=== PATIENT | female | born 1995 | race Hispanic/Latino ===

== ENCOUNTER → 2019-08-07 | Outpatient (REF) | payer OTHER ==
[~2019-08-07] MED LIST: COLA100C5 PO; DIBU1OIN TOP; MOTR200T44 PO; STUACAP PO; TYLE325T5 PO
[2019-08-07 21:29] LABS: CHLAMYDIA DNA AMPLIFICATION NEGATIVE (NEGATIVE); GC DNA AMPLIFICATION NEGATIVE (NEGATIVE)
== END ==
LOC: M SFHCLUC 10:54
PROVIDERS: ATTEND Nurse Practitioner Family
DX: R11.2 Nausea with vomiting, unspecified (principal)

== ENCOUNTER 2020-10-19 10:35 | Emergency (ER) | payer OTHER ==
[~2020-10-19] VITALS: Ht 157.5 cm; Wt 79.5 kg
[2020-10-19] MEDS ORDERED: PREN1CHW PO (10:40)
[2020-10-19 11:40] LABS: BASO % 0.4 % (0.0-1.0); EOS # 0.1 10^3/uL (0.0-0.5); EOS % 1.5 % (0.0-3.0); HEMATOCRIT 38.8 % (36.0-47.0); LYMPH # 1.6 10^3/uL (1.5-5.0); LYMPH % 22.2 % (24.0-44.0); MEAN CORPUSCULAR HEMOGLOBIN 29.1 pg (27.0-33.0); MEAN CORPUSCULAR HGB CONC 33.5 g/dl (32.0-36.5); MEAN CORPUSCULAR VOLUME 86.8 fl (80.0-96.0); MONO # 0.4 10^3/uL (0.0-0.8); MONO % 5.1 % (0.0-5.0); NEUTROPHILS # 5.1 10^3/uL (1.5-8.5); NEUTROPHILS % 70.5 % (36.0-66.0); PLATELET COUNT, AUTOMATED 217 10^3/uL (150-450); RED BLOOD COUNT 4.47 10^6/uL (4.00-5.40); WHITE BLOOD COUNT 7.2 10^3/uL (4.0-10.0)
[2020-10-19 12:18] LABS: BLOOD UREA NITROGEN 8 MG/DL (7-18); CALCIUM LEVEL 8.9 MG/DL (8.5-10.1); CARBON DIOXIDE LEVEL 27 MEQ/L (21-32); CHLORIDE LEVEL 105 MEQ/L (98-107); CREATININE FOR GFR 0.78 MG/DL (0.55-1.30); GLOMERULAR FILTRATION RATE > 60.0 (>60); GLUCOSE, FASTING 94 MG/DL (70-100); HCG, SERUM QUANTITATIVE 65856 MIU/ML; POTASSIUM SERUM 3.7 MEQ/L (3.5-5.1); SODIUM LEVEL 138 MEQ/L (136-145)
--- NOTE | 2020-10-19 12:32 | REP ---
INDICATION: vaginal bleeding 7wks . COMPARISON: No pertinent priors TECHNIQUE: Transvesical imaging only FINDINGS: Within the uterus there is an anechoic structure with increased echoes surrounding it consistent with a decidual reaction. Within the gestational sac there is echogenic material consistent with a pole the mean crown-rump length measurement of which is consistent with a 7 week 3 day gestational age. Based on that the estimated date of delivery is 06/04/2021. Doppler interrogation of the heart is a heart rate of 169 beats per minute. No chorionic or subchorionic abnormalities are noted. No gross abnormality is seen in the maternal adnexa spaces. IMPRESSION: Early OB ultrasound as described above. <Electronically signed by Kendell Elam > 10/19/20 2400
[2020-10-19] MEDS ORDERED: KEFL500C17 PO (13:55)
[2020-10-19 14:19] VITALS: BP 102/58
== END 2020-10-19 14:23 | disposition home or self-care (01) ==
LOC: M ED 10:35
DX: O20.9 Hemorrhage in early pregnancy, unspecified (principal); O23.41 Unspecified infection of urinary tract in pregnancy, first trimester; Z3A.01 Less than 8 weeks gestation of pregnancy

== ENCOUNTER → 2020-10-22 | Outpatient (CLI) | payer OTHER ==
[~2020-10-22] MED LIST changes: +KEFL500C17 PO; +PREN1CHW PO
== END ==
LOC: M LAB 10:20
PROVIDERS: ATTEND Nurse Practitioner Family
DX: O26.859 Spotting complicating pregnancy, unspecified trimester (principal); Z3A.00 Weeks of gestation of pregnancy not specified

== ENCOUNTER 2021-03-07 18:22 | Emergency (ER) | payer OTHER ==
[~2021-03-07] VITALS: Ht 157.5 cm; Wt 84.7 kg
[2021-03-07] MEDS ORDERED: NITR-67 PO (18:35)
[2021-03-07] MEDS ORDERED: ACETAMINOPHEN 325 MG TAB PO ONE (19:35)
[2021-03-07 19:59] LABS: BASO % 0.2 % (0.0-1.0); EOS # 0.1 10^3/uL (0.0-0.5); EOS % 1.4 % (0.0-3.0); HEMATOCRIT 32.3 % (36.0-47.0); HEMOGLOBIN 10.7 g/dl (12.0-15.5); LYMPH # 2.1 10^3/uL (1.5-5.0); LYMPH % 24.5 % (24.0-44.0); MEAN CORPUSCULAR HEMOGLOBIN 29.9 pg (27.0-33.0); MEAN CORPUSCULAR HGB CONC 33.1 g/dl (32.0-36.5); MEAN CORPUSCULAR VOLUME 90.2 fl (80.0-96.0); MONO # 0.7 10^3/uL (0.0-0.8); MONO % 8.6 % (2.0-8.0); NEUTROPHILS # 5.5 10^3/uL (1.5-8.5); NEUTROPHILS % 64.4 % (36.0-66.0); PLATELET COUNT, AUTOMATED 180 10^3/uL (150-450); RED BLOOD COUNT 3.58 10^6/uL (4.00-5.40); WHITE BLOOD COUNT 8.5 10^3/uL (4.0-10.0)
[2021-03-07 20:28] LABS: ALBUMIN 2.6 GM/DL (3.2-5.2); ALT/SGPT 16 U/L (12-78); BILIRUBIN,TOTAL 0.3 MG/DL (0.2-1.0); BLOOD UREA NITROGEN 6 MG/DL (7-18); CALCIUM LEVEL 8.6 MG/DL (8.5-10.1); CARBON DIOXIDE LEVEL 24 MEQ/L (21-32); CHLORIDE LEVEL 108 MEQ/L (98-107); CREATININE FOR GFR 0.55 MG/DL (0.55-1.30); GLOMERULAR FILTRATION RATE > 60.0 (>60); GLUCOSE, FASTING 95 MG/DL (70-100); POTASSIUM SERUM 3.8 MEQ/L (3.5-5.1); SODIUM LEVEL 140 MEQ/L (136-145); TOTAL PROTEIN 6.1 GM/DL (6.4-8.2)
[2021-03-07 20:54] VITALS: BP 130/61
== END 2021-03-07 20:56 | disposition home or self-care (01) ==
LOC: M ED 18:22
DX: O26.893 Other specified pregnancy related conditions, third trimester (principal); M54.5 Low back pain; Z3A.28 28 weeks gestation of pregnancy

== ENCOUNTER 2021-05-31 06:51 | Inpatient (IN) | payer OTHER ==
[~2021-05-31] VITALS: Ht 157.5 cm; Wt 88.2 kg
[2021-05-31] VITALS (24 sets, daily range): BP systolic 102–140; BP diastolic 53–91
[~2021-05-31 06:51] MED LIST changes: +NITR-67 PO
[2021-05-31] MEDS ORDERED: CARBOPROST TROMETHAMINE 250 MCG/ML AMP IM PRN (09:25)
[2021-05-31] MEDS ORDERED: LIDOCAINE 1% MDV 20ML VIAL INFIL PRN (09:25)
[2021-05-31] MEDS ORDERED: METHYLERGONOVINE MALEATE 0.2 MG/ML VIAL (J2210) IM PRN (09:25)
[2021-05-31] MEDS ORDERED: OXYTOCIN DRIP 30 UNITS in IV 1 EA IV PRN ×4 (09:25)
[2021-05-31] MEDS ORDERED: TRANEXAMIC ACID INJection 1,000 MG in NS 100 ML IV PRN (09:25)
[2021-05-31 09:59] LABS: HEMATOCRIT 35.2 % (36.0-47.0); HEMOGLOBIN 11.9 g/dl (12.0-15.5); MEAN CORPUSCULAR HEMOGLOBIN 30.4 pg (27.0-33.0); MEAN CORPUSCULAR HGB CONC 33.8 g/dl (32.0-36.5); PLATELET COUNT, AUTOMATED 160 10^3/uL (150-450); RED BLOOD COUNT 3.91 10^6/uL (4.00-5.40); WHITE BLOOD COUNT 8.7 10^3/uL (4.0-10.0)
--- NOTE | 2021-05-31 10:03 | HPEPDOC ---
Obstetrical History & Physical General Date of Admission May 31, 2021 at 09:13 History of Present Illness Patient is a 26yo at 39w1d by LMP c/w 1st TM US, presents for worsening contraction pain that began at 0200 this AM. States they are occurring every 2-3 min and becoming more painful. Denies LOF, VB or discharge. +GFM. Chief Complaint: Contractions, term Information Provided By: Patient Care Care: Good Care Dating Final EDC: Jun 06, 2021 Final EDC by: LMP, 1st trimester (US) Antepartum Course Diagnos(e)s Obesity(BMI 31) Elevated 1hr, nml 3hr GTT Past Medical History Past Obstetrical History #1: Past Obstetrical History: Multigravida Type of Delivery: Spontaneous Vaginal Del. Sex of : Male Complications: No Past Obstetrical History #2: Type of Delivery: Spontaneous Vaginal Del. 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 History: No pertinent history Past Medical History Medical History obesity Surgical History: Denies/None Family History Significant Family History: No pertinent family hx Social History Marital Status: Family situation: Spouse/partner home Psychosocial History: No pertinent psych hx * Smoker: non-smoker Abuse Violence Screening Have you been hit/kicked/slapp: No Have you been sexually assault: No Imunizations Tdap status: current Influenza Status: current Allergies Coded Allergies: No Known Allergies (Unverified , 04/24/16) Medications Scheduled Comb No.42/Folic Acid (Prena1 Chew Tablet) 1.4 Mg Tab.ch.bph, 1 TAB PO DAILY Physical Examination Physical Examination GENERAL: Alert and oriented times three. BREAST: . ABDOMEN: Gravid and non-tender to touch. FETUS: Is vertex (VTX) by sterile vaginal examination (SVE). SVE 4/80/-1 on initial exam, repeat 5/100/-1 HEART RATE: Regular rate and rhythm. LUNGS: Normal work of breathing EXTREMITIES: No edema. No clonus. Deep tendon reflexes (DTRs) + . Vital Signs/I&O Vital Signs Date Time Temp Pulse Resp B/P (MAP) Pulse Ox O2 Delivery O2 Flow Rate FiO2 05/31/21 07:12 98.2 78 18 113/64 (80) Laboratory Data 24H LABS Laboratory Tests 2 05/31/21 09:31: Serology Scanned Report Hepatitis B Testing 05/31/21 09:46: CBC/BMP Laboratory Tests 05/31/21 09:46 Pertinent Laboratoy Data Blood Type: B+ RBC Antibody Screen: Negative HIV: Negative Hepatitis B: Negative Hepatitis C: Negative Rapid Plasma Reagin: Nonreactive Rubella: Immune Varicella: Immune Chlamydia/Gonorrhea: Negative Group B Streptococcus: Negative Vaginal Examination Dilation: 4 cm Effacement: 70% Station: -1 Cervical Consistency: Soft Cervical Position: Middle Presentation: Cephalic presentation Assessment Heart Rate (FHR): 140 Variability: Moderate Accelerations: Positive Decelerations: None Tocometer Contractions: Yes Frequency: regular, every 1-5 min. Duration: greater than 60 seconds Strength: palpated as moderate Multi-drug resistant Organism: No history of MDRO Assessment/Plan Plan Admit and orient. Pressurizer and consent. Diet: clears now. NPO in active labor Group B Streptococcus (GBS) negative. Labs and intravenous (IV) per unit protocol. Counseled on Pitocin and augmentation of labor if indicated Lactated Ringers (LR):bolus for epidural, then maintenance Anticipate [normal spontaneous delivery . C-S as appropriate. Labor and Delivery Counseling Counseled on risks/benefits of balloon insertion (ie: infection, inadvertent AROM), and reviewed common medication utilized during induction (cytotec, pitocin). Reviewed reasons for possible operative vs. delivery as well as risks/benefits associated with these procedures to include injury, infection, and possible need for blood transfusion in the event of signficant hemorrhage. Patient and both present during counseling and agree to proceed. All questions answered. ALAINA THOMAS M.D. May 31, 2021 10:03
[2021-05-31] MEDS ORDERED: FENTANYL 2MCG/ML ROPIVACAINE 0.2% IN 0.9% NACL 100ML IVBAG As Ordered ONE (10:08)
[2021-05-31] MEDS ORDERED: LACTATED RINGER'S 1000 ML IV PRN (10:15)
[2021-05-31] MEDS ORDERED: ePHEDrine SULFATE 25 MG/5 ML(5MG/ML) SYRINGE IV PRN (10:15)
[2021-05-31] MEDS ORDERED: EPIDURAL COMMENT XX SCH (10:15)
[2021-05-31] MEDS ORDERED: FENTANYL/ROPIVACAINE/NACL BAG 100 ML EPIDURAL SCH (10:15)
[2021-05-31] MEDS ORDERED: diphenhydrAMINE 50MG/ML VIAL (J1200) IV PRN (10:15)
[2021-05-31] MEDS ORDERED: NALOXONE INJ 0.4MG/1ML VIAL (J2310 PER 1MG) IV PRN (10:15)
[2021-05-31] MEDS ORDERED: ONDANSETRON 4MG/2ML VIAL IV PRN (10:15)
[2021-05-31] MEDS ORDERED: EPIDURAL/PCA KEYS XX PRN (10:15)
[2021-05-31] MEDS ORDERED: REFRIGERATOR IV KEYS XX PRN (10:15)
--- NOTE | 2021-05-31 14:18 | IPNPDOC ---
Obstetrical Progress Note Date of Service May 31, 2021 Subjective 26yo at 39wks in active labor. Comfortable with epidural. Denies LOF, VB or discharge. +GFM. Objective Vital Signs Date Time Temp Pulse Resp B/P (MAP) Pulse Ox O2 Delivery O2 Flow Rate FiO2 05/31/21 12:26 64 18 113/59 (77) 05/31/21 12:11 73 114/56 (75) 05/31/21 11:54 76 18 112/70 (84) 05/31/21 11:40 70 115/64 (81) 05/31/21 11:24 59 107/58 (74) 05/31/21 11:09 86 112/61 (78) 05/31/21 10:51 73 119/58 (78) 05/31/21 10:47 70 115/57 (76) 05/31/21 10:42 68 102/57 (72) 05/31/21 10:39 76 18 113/53 (73) 05/31/21 10:30 83 18 135/67 (89) 05/31/21 10:26 75 18 05/31/21 10:25 79 20 132/78 (96) 05/31/21 10:21 73 20 129/67 (87) 05/31/21 10:17 81 18 140/91 (107) 05/31/21 10:05 79 18 130/67 (88) 05/31/21 07:12 98.2 78 18 113/64 (80) Laboratory Tests 05/31/21 09:31: Serology Scanned Report Hepatitis B Testing 05/31/21 09:46: White Blood Count 8.7, Red Blood Count 3.91L, Hemoglobin 11.9L, Hematocrit 35.2L, Mean Corpuscular Volume 90.0, Mean Corpuscular Hemoglobin 30.4, Mean Corpuscular Hemoglobin Concent 33.8, Red Cell Distribution Width 13.8, Platelet Count 160, Nucleated Red Blood Cells % (auto) 0.0, Syphilis Serology NONREACTIVE Current Medications Medications (Trade) Dose Ordered Sig/Dominique Route PRN Reason Start Time Stop Time Status Last Admin Dose Admin Ropivacaine/ Fentanyl/NS 100 ml @ 10 mls/hr Q10H EPIDURAL 05/31/21 10:15 06/03/21 10:14 05/31/21 10:44 10 MLS/HR Vital Signs Date Time Temp Pulse Resp B/P (MAP) Pulse Ox O2 Delivery O2 Flow Rate FiO2 05/31/21 12:26 64 18 113/59 (77) 05/31/21 07:12 98.2 Assessment Heart Rate (FHR): 130 Variability: Moderate Accelerations: Positive Decelerations: None Heart Rate Tracing: Category I Tocometer Contractions: Yes Frequency: regular Duration: greater than 60 seconds Strength: palpated as strong Sterile Vaginal Examination Dilation: 7 cm (AROM, clear fluid) Effacement (%): 100% Station: -1 Cervical Consistency: Soft Postion/Presentation: Cephalic presentation Assessment and Plan Status: Reassuring Anticipate: Vaginal Delivery Additional Comments Pt comfortable with epidural. AROM performed with moderate amount of clear fluid noted. FHT Cat 1. Anticipate vaginal delivery. ALAINA THOMAS M.D. May 31, 2021 14:18
[2021-05-31] MEDS ORDERED: ACETAMINOPHEN TAB 650MG DOSE (2X325MG) PO PRN (16:15)
[2021-05-31] MEDS ORDERED: IBUPROFEN 600MG TAB PO PRN (16:15)
[2021-05-31] MEDS ORDERED: MEASLES,MUMPS,RUBELLA VACCINE INJ (MMR-II) (90707) SC SCH (16:15)
--- NOTE | 2021-05-31 16:28 | DNPDOC ---
[facility] Delivery Note Delivery Note DATE OF DELIVERY: 31 May 2021 PREDELIVERY DIAGNOSIS: 39w0d weeks gestation Spontaneous labor Second degree perineal laceration POST DELIVERY DIAGNOSIS: Delivered. PROCEDURE: Spontaneous vaginal delivery. 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 ESTIMATED BLOOD LOSS: 300 mL. FINDINGS: male infant, Score 9/9 DELIVERY SUMMARY: Patient is a 26yo at 39wks gestation admitted in labor at term. Patient progressed to C/C/+2 and was allowed to push. With good maternal pushing effort, delivered head over intact perineum and restituted to LILO. Remainder of infant quickly delivered and was placed skin to skin on mother's chest. Infant spontaneously crying and moving all extremities. Delayed cord clamping performed [id number]. Placenta delivered intact without di fficulty. Small second degree perineal laceration noted and repaired in usual fashion. Good hemostasis noted. EBL 300cc. Mom and baby both stable immediately . ALAINA THOMAS M.D. May 31, 2021 16:27
[2021-05-31] MEDS: DIBUCAINE 1% OINTMENT 30GM TOP PRN (20:08)
[2021-05-31] MEDS: DOCUSATE SODIUM 100MG CAPSULE PO PRN (20:08)
[2021-05-31] MEDS: IBUPROFEN 800 MG TAB PO PRN (23:50)
[2021-06-01 05:39] VITALS: BP 107/51
--- NOTE | 2021-06-01 07:04 | IPNPDOC ---
Progress Note Date of Service: Jun 01, 2021 Day#: 1 Progress Note SUBJECT: Pt is a 26-year-old 3 now Para 3003 PPD #1status post uncomplicated spontaneous vaginal delivery at term. Delivered male at [id number]. She has been ambulating, voiding spontaneously without issue and tolerating regular diet. Breast feeding without issue. Reports lochia is minimal. Patient is ambulating well. OBJECTIVE: Vital Signs Date Time Temp Pulse Resp B/P (MAP) Pulse Ox O2 Delivery O2 Flow Rate FiO2 06/01/21 05:39 97.5 72 14 107/51 (69) 05/31/21 18:00 97.7 74 14 108/55 (72) 100 05/31/21 16:54 70 18 108/59 (75) 05/31/21 15:57 73 18 120/55 (76) 05/31/21 14:57 60 18 117/63 (81) 05/31/21 14:27 70 118/60 (79) 05/31/21 13:57 63 113/65 (81) 05/31/21 13:28 63 115/58 (77) 05/31/21 12:57 72 115/61 (79) 05/31/21 12:26 64 18 113/59 (77) 05/31/21 12:11 73 114/56 (75) 05/31/21 11:54 76 18 112/70 (84) 05/31/21 11:40 70 115/64 (81) 05/31/21 11:24 59 107/58 (74) 05/31/21 11:09 86 112/61 (78) 05/31/21 10:51 73 119/58 (78) 05/31/21 10:47 70 115/57 (76) 05/31/21 10:42 68 102/57 (72) 05/31/21 10:39 76 18 113/53 (73) 05/31/21 10:30 83 18 135/67 (89) 05/31/21 10:26 75 18 05/31/21 10:25 79 20 132/78 (96) 05/31/21 10:21 73 20 129/67 (87) 05/31/21 10:17 81 18 140/91 (107) 05/31/21 10:05 79 18 130/67 (88) 05/31/21 07:12 98.2 78 18 113/64 (80) Intake & Output 06/01/21 05:59 Intake Total 563 ml Output Total 2000 ml Balance -1437 ml Current Medications Medications (Trade) Dose Ordered Sig/Dominique Route PRN Reason Start Time Stop Time Status Last Admin Dose Admin Dibucaine (Dibucaine 1%) Apply to perineum Q4H PRN TOP pain 05/31/21 16:15 05/31/21 20:08 1 DOSE Docusate Sodium (Colace) 100 mg QHSP PRN PO CONSTIPATION 05/31/21 16:15 05/31/21 20:08 100 MG Ibuprofen (Advil) 800 mg Q8HP PRN PO PAIN LEVEL 6-10 05/31/21 16:15 05/31/21 23:50 800 MG Ropivacaine/ Fentanyl/NS 100 ml @ 10 mls/hr Q10H EPIDURAL 05/31/21 10:15 06/03/21 10:14 05/31/21 10:44 10 MLS/HR VITAL SIGNS: Within normal limits, afebrile. Alert and oriented times three. Breath sounds clear to auscultation. Heart rate: Regular rate and rhythm, no murmurs, rubs or gallops. Abdomen: Fundus firm at U-2. Soft, NTTP. ASSESSMENT:Pt is a 26-year-old 3 now Para 3003 status post uncomplicated spontaneous vaginal delivery after presenting in active labor at term, doing well on day 1. Vitals within normal limits, afebrile, hemodynamically stable with no evidence of infection. PLAN: 1. Plan for discharge home tomorrow AM. 2. Tylenol and Motrin for pain. 3. Encourage breast feeding and ambulation. 4. planning vasectomy for contraception 5. Routine PP visit in 6 weeks in clinic. VS, I&O, 24H, Fishbone Vital Signs/I&O Vital Signs Date Time Temp Pulse Resp B/P (MAP) Pulse Ox O2 Delivery O2 Flow Rate FiO2 06/01/21 05:39 97.5 72 14 107/51 (69) 05/31/21 18:00 100 I&O- Last 24 Hours up to 6 AM 06/01/21 05:59 Intake Total 563 ml Output Total 2000 ml Balance -1437 ml Laboratory Data 24H LABS Laboratory Tests 2 05/31/21 09:31: Serology Scanned Report Hepatitis B Testing 05/31/21 09:46: Nucleated Red Blood Cells % (auto) 0.0, Syphilis Serology NONREACTIVE CBC/BMP Laboratory Tests 05/31/21 09:46 ALAINA TOHMAS M.D. Jun 01, 2021 07:04
[2021-06-01] MEDS: PRENATAL VITAMINS CHEWABLE TABLET PO SCH (08:32)
[2021-06-01] MEDS: ACETAMINOPHEN 500 MG TAB PO PRN ×2 (08:33→19:58)
[2021-06-01 18:00] VITALS: BP 118/68
[2021-06-01] MEDS: DOCUSATE SODIUM 100MG CAPSULE PO PRN (19:57)
[2021-06-01] MEDS: DIBUCAINE 1% OINTMENT 30GM TOP PRN (20:15)
[2021-06-01] MEDS: IBUPROFEN 800 MG TAB PO PRN (23:10)
[2021-06-02 05:44] VITALS: BP 116/55
[2021-06-02] MEDS ORDERED: ACET-683 PO (07:58)
[2021-06-02] MEDS ORDERED: DIBU28OI2 TOP (07:58)
[2021-06-02] MEDS ORDERED: IBUP80TA PO (07:58)
--- NOTE | 2021-06-02 08:27 | DS.PDOC ---
Discharge Summary General Date of Admission May 31, 2021 at 09:13 Date of Discharge June 02, 2021 Discharge Summary HOSPITAL COURSE: Ms. Slater is a 26 yo G3 now P3 who underwent an uncomplicated on 31May2021 after being admitted for labor. Her course was unremarkable. On her day of discharge she met all appropriate discharge criteria. She was ambulating, voiding, tolerating a regular diet, and had minimal lochia. DISCHARGE MEDICATIONS: Please see below. ALLERGIES: Please see below. PHYSICAL EXAMINATION ON DISCHARGE: VITAL SIGNS: Please see below. GENERAL: AAOX3, NAD ABDOMINAL EXAMINATION: Fundus firm at U-2. No fundal tenderness EXTREMITIES: No edema PSYCHIATRIC EXAMINATION: Affect appropriate LABORATORY DATA: Please see below. ACTIVITY: Pelvic rest for 6 weeks DIET: Regular DISCHARGE PLAN: Discharge home DISPOSITION: Discharge home on 02Jun2021 DISCHARGE INSTRUCTIONS: 1. Nothing in the vagina for 6 weeks ITEMS TO FOLLOWUP ON ON OUTPATIENT: 1. Call to schedule a visit for 6 weeks post delivery DISCHARGE CONDITION: Stable. TIME SPENT ON DISCHARGE: Greater than 20 minutes. Sarah Lopez DO Vital Signs/I&Os Vital Signs Date Time Temp Pulse Resp B/P (MAP) Pulse Ox O2 Delivery O2 Flow Rate FiO2 06/02/21 05:44 96.8 60 14 116/55 (75) 06/01/21 18:00 98 Room Air Discharge Medications Scheduled Comb No.42/Folic Acid (Prena1 Chew Tablet) 1.4 Mg Tab.ch.bph, 1 TAB PO DAILY, (Reported) Scheduled PRN Acetaminophen (Acetaminophen) 500 Mg Tablet, 1,000 MG PO Q6HP PRN for PAIN LEVEL 6-10 Dibucaine (Dibucaine) 28 Gm Oint...g., 0 DOSE TOP Q4H PRN for pain Ibuprofen (Ibuprofen) 800 Mg Tablet, 800 MG PO Q8HP PRN for PAIN LEVEL 6-10 Allergies Coded Allergies: No Known Allergies (Unverified , 04/24/16) SARAH LOPEZ DO Jun 02, 2021 08:27
[2021-06-02] MEDS: PRENATAL VITAMINS CHEWABLE TABLET PO SCH (09:07)
[2021-06-02] MEDS: ACETAMINOPHEN 500 MG TAB PO PRN (09:17)
== END 2021-06-02 11:00 | disposition home or self-care (01) | DRG 807 ==
LOC: M LDO 06:51 → M LDI 09:13 → M OBS 18:34
PROVIDERS: ADMIT Obstetrics & Gynecology; ATTEND Obstetrics & Gynecology
PROC: 10E0XZZ Delivery of Products of Conception, External Approach (ICD-10-PCS; principal; 2021-05-31)
PROC: 0KQM0ZZ Repair Perineum Muscle, Open Approach (ICD-10-PCS; 2021-05-31)
PROC: 10907ZC Drainage of Amniotic Fluid, Therapeutic from Products of Conception, Via Natural or Artificial Opening (ICD-10-PCS; 2021-05-31)
DX: O99.214 Obesity complicating childbirth (principal); Z37.0 Single live birth; Z3A.39 39 weeks gestation of pregnancy; O70.1 Second degree perineal laceration during delivery; E66.9 Obesity, unspecified

== ENCOUNTER → 2022-03-05 | Outpatient (CLI) | payer OTHER ==
[~2022-03-05] MED LIST changes: +ACET-683 PO; +DIBU28OI2 TOP; +GASTROGRAFIN SOLUTION 30ML (Q9963) As Ordered ONE; +IBUP80TA PO; +ISOVUE-370 76% 100ML VIAL As Ordered ONE
== END ==
LOC: M RAD 15:40
PROVIDERS: ATTEND Surgery
DX: R10.13 Epigastric pain (principal); K59.00 Constipation, unspecified
CPT/HCPCS: 74178; Q9963; Q9967

== ENCOUNTER → 2022-05-12 | Outpatient (CLI) | payer BC, OTHER, SELFPAY ==
[~2022-05-12] MED LIST changes: -GASTROGRAFIN SOLUTION 30ML (Q9963) As Ordered ONE; -ISOVUE-370 76% 100ML VIAL As Ordered ONE
== END ==
LOC: M LABSMTC 11:30
PROVIDERS: ATTEND Anesthesiology
DX: Z01.812 Encounter for preprocedural laboratory examination (principal); Z20.822 Contact with and (suspected) exposure to COVID-19

== ENCOUNTER 2022-05-15 12:35 | Day surgery (SDC) | payer BC, SELFPAY ==
[~2022-05-15] VITALS: Ht 157.5 cm; Wt 82.5 kg
[~2022-05-15 12:35] MED LIST changes: +NS 1,000 ML IV ONE
[2022-05-15] MEDS ORDERED: propofoL 200 MG/20 ML VIAL As Ordered ONE ×2 (12:37→12:56)
[2022-05-15] MEDS ORDERED: fentaNYL 100 MCG/2 ML INJECTION As Ordered ONE (12:37)
[2022-05-15] MEDS ORDERED: LIDOCAINE 2% 100MG/5ML SDV (FOR ANES.) As Ordered ONE (12:37)
[2022-05-15 14:00] VITALS: BP 114/67
== END 2022-05-15 14:09 | disposition home or self-care (01) ==
LOC: M OPP 12:35
PROVIDERS: ATTEND Surgery
DX: K21.00 Gastro-esophageal reflux disease with esophagitis, without bleeding (principal); R10.13 Epigastric pain; Z79.899 Other long term (current) drug therapy
CPT/HCPCS: 43239; 88305; J3010

== ENCOUNTER → 2023-02-03 | Outpatient (REF) | payer BC ==
[~2023-02-03] MED LIST changes: -NS 1,000 ML IV ONE
[2023-02-03 17:28] LABS: BASO % 0.3 % (0.0-1.0); EOS # 0.1 10^3/uL (0.0-0.5); EOS % 1.8 % (0.0-3.0); HEMATOCRIT 39.2 % (36.0-47.0); LYMPH # 2.4 10^3/uL (1.5-5.0); LYMPH % 36.6 % (24.0-44.0); MEAN CORPUSCULAR HEMOGLOBIN 29.2 pg (27.0-33.0); MEAN CORPUSCULAR HGB CONC 33.2 g/dl (32.0-36.5); MEAN CORPUSCULAR VOLUME 88.1 fl (80.0-96.0); MONO # 0.5 10^3/uL (0.0-0.8); NEUTROPHILS # 3.5 10^3/uL (1.5-8.5); NEUTROPHILS % 53.4 % (36.0-66.0); PLATELET COUNT, AUTOMATED 230 10^3/uL (150-450); RED BLOOD COUNT 4.45 10^6/uL (4.00-5.40); WHITE BLOOD COUNT 6.6 10^3/uL (4.0-10.0)
[2023-02-03 17:54] LABS: ALBUMIN 3.8 G/DL (3.2-5.2); ALKALINE PHOSPHATASE 101 U/L (46-116); ALT/SGPT 17 U/L (7.0-40); AST/SGOT 14 U/L (<34); BILIRUBIN,TOTAL 0.7 MG/DL (0.3-1.2); BLOOD UREA NITROGEN 10 MG/DL (9-23); CALCIUM LEVEL 8.9 MG/DL (8.5-10.1); CARBON DIOXIDE LEVEL 26 MMOL/L (20-31); CHLORIDE LEVEL 102 MMOL/L (98-107); CHOLESTEROL LEVEL 173 MG/DL (<200); CHOLESTEROL RISK RATIO 3.87 (<5); CREATININE FOR GFR 0.66 MG/DL (0.55-1.30); GLOMERULAR FILTRATION RATE > 60.0 (>60); GLUCOSE, FASTING 76 MG/DL (60-100); HDL CHOLESTEROL 44.7 MG/DL (>40); LDL CHOLESTEROL 107.9 MG/DL (<100); NON-HDL-C 128 MG/DL; POTASSIUM SERUM 3.7 MMOL/L (3.5-5.1); SODIUM LEVEL 138 MMOL/L (136-145); THYROID STIMULATING HORMONE 0.921 uIU/ML (0.55-4.78); TOTAL 25(OH) VITAMIN D 14.4 NG/ML (20.0-100.0); TOTAL PROTEIN 7.3 G/DL (5.7-8.2); TRIGLYCERIDES LEVEL 102 MG/DL (<150)
[2023-02-03 19:13] LABS: HEMOGLOBIN A1c 5.4 % (4.0-6.0)
== END ==
LOC: M LAB REF 16:24
PROVIDERS: ATTEND Nurse Practitioner Family
DX: Z68.34 Body mass index [BMI] 34.0-34.9, adult (principal); E55.9 Vitamin D deficiency, unspecified; R53.83 Other fatigue

== ENCOUNTER 2023-03-31 16:59 | Emergency (ER) | payer BC ==
[~2023-03-31] VITALS: Ht 157.5 cm; Wt 86.9 kg
[2023-03-31] MEDS ORDERED: VITA200032 (17:10)
[2023-03-31] MEDS ORDERED: FAMO40TA3 (17:10)
[2023-03-31] MEDS ORDERED: methylPREDNISolone 125MG 2ML VIAL IV ONE (18:00)
[2023-03-31] MEDS ORDERED: KETOROLAC 30 MG/ML 1ML VIAL IV ONE (18:00)
[2023-03-31] MEDS ORDERED: GABAPENTIN 300 MG CAP PO ONE (18:00)
[2023-03-31] MEDS ORDERED: GABAPENTIN 100 MG CAP PO ONE (18:10)
[2023-03-31 18:29] LABS: BASO % 0.1 % (0.0-1.0); EOS # 0.2 10^3/uL (0.0-0.5); EOS % 2.3 % (0.0-3.0); HEMATOCRIT 38.9 % (36.0-47.0); HEMOGLOBIN 12.9 g/dl (12.0-15.5); LYMPH # 2.7 10^3/uL (1.5-5.0); LYMPH % 35.8 % (24.0-44.0); MEAN CORPUSCULAR HEMOGLOBIN 29.1 pg (27.0-33.0); MEAN CORPUSCULAR HGB CONC 33.2 g/dl (32.0-36.5); MEAN CORPUSCULAR VOLUME 87.6 fl (80.0-96.0); MONO # 0.5 10^3/uL (0.0-0.8); MONO % 6.6 % (2.0-8.0); NEUTROPHILS # 4.1 10^3/uL (1.5-8.5); NEUTROPHILS % 54.9 % (36.0-66.0); PLATELET COUNT, AUTOMATED 215 10^3/uL (150-450); RED BLOOD COUNT 4.44 10^6/uL (4.00-5.40); WHITE BLOOD COUNT 7.4 10^3/uL (4.0-10.0)
[2023-03-31 18:39] LABS: INR 0.96
[2023-03-31 18:40] LABS: PARTIAL THROMBOPLASTIN TIME 28.1 SECONDS (24.8-34.2)
[2023-03-31 19:02] LABS: BLOOD UREA NITROGEN 10 MG/DL (9-23); CALCIUM LEVEL 8.6 MG/DL (8.5-10.1); CARBON DIOXIDE LEVEL 28 MMOL/L (20-31); CHLORIDE LEVEL 105 MMOL/L (98-107); GLOMERULAR FILTRATION RATE > 60.0 (>60); GLUCOSE, FASTING 81 MG/DL (60-100); POTASSIUM SERUM 3.8 MMOL/L (3.5-5.1); SODIUM LEVEL 138 MMOL/L (136-145)
[2023-03-31] MEDS ORDERED: NEUR300C PO (20:56)
[2023-03-31] MEDS ORDERED: MEDR4PAK PO (20:56)
[2023-03-31] MEDS ORDERED: METH-1165 PO (20:56)
[2023-03-31 21:10] VITALS: BP 126/72
== END 2023-03-31 21:11 | disposition home or self-care (01) ==
LOC: M ED 16:59
DX: R22.32 Localized swelling, mass and lump, left upper limb (principal); M54.2 Cervicalgia; M25.532 Pain in left wrist; M25.78 Osteophyte, vertebrae; G56.02 Carpal tunnel syndrome, left upper limb; Z79.899 Other long term (current) drug therapy
CPT/HCPCS: 72141; 80048; 83735; 85025; 85610; 85730; 93971; 96374; 96375; 99284; J1885; J2930

== ENCOUNTER 2023-04-09 11:21 | Emergency (ER) | payer BC ==
[~2023-04-09] VITALS: Ht 157.5 cm; Wt 86.4 kg
[~2023-04-09 11:21] MED LIST changes: +FAMO40TA3; +MEDR4PAK PO; +METH-1165 PO; +NEUR300C PO; +VITA200032
[2023-04-09] MEDS ORDERED: ACETAMINOPHEN 325 MG TAB PO ONE (13:10)
[2023-04-09] MEDS ORDERED: MECLIZINE 25 MG TABLET PO ONE (13:10)
[2023-04-09] MEDS ORDERED: AMOX875T2 PO (14:46)
[2023-04-09] MEDS ORDERED: FLON1SPR NARES (14:46)
[2023-04-09] MEDS ORDERED: MECL1TAB31 PO (14:46)
[2023-04-09 14:52] VITALS: BP 92/50
== END 2023-04-09 15:01 | disposition home or self-care (01) ==
LOC: M ED 11:21
DX: J01.90 Acute sinusitis, unspecified (principal); H81.4 Vertigo of central origin; Z79.899 Other long term (current) drug therapy; Z79.52 Long term (current) use of systemic steroids

== ENCOUNTER → 2023-04-21 | Outpatient (CLI) | payer BC ==
[~2023-04-21] MED LIST changes: +AMOX875T2 PO; +FLON1SPR NARES; +MECL1TAB31 PO
== END ==
LOC: M SOG 08:14
PROVIDERS: ATTEND Physician Assistant
DX: M25.532 Pain in left wrist (principal)

== ENCOUNTER → 2023-05-04 | Outpatient (REF) | payer BC | LOC: M LAB REF 12:17 | PROVIDERS: ATTEND Nurse Practitioner Family | DX: J02.9 Acute pharyngitis, unspecified (principal) ==

== ENCOUNTER 2023-08-06 17:11 | Emergency (ER) | payer BC ==
[~2023-08-06] VITALS: Ht 157.5 cm; Wt 86.9 kg
[~2023-08-06 17:11] MED LIST changes: +MECL-209 PO; -MECL1TAB31 PO
[2023-08-06 21:13] LABS: BASO % 0.3 % (0.0-1.0); EOS # 0.2 10^3/uL (0.0-0.5); EOS % 2.6 % (0.0-3.0); HEMATOCRIT 38.9 % (36.0-47.0); HEMOGLOBIN 12.7 g/dl (12.0-15.5); LYMPH # 2.5 10^3/uL (1.5-5.0); LYMPH % 32.2 % (24.0-44.0); MEAN CORPUSCULAR HEMOGLOBIN 28.6 pg (27.0-33.0); MEAN CORPUSCULAR HGB CONC 32.6 g/dl (32.0-36.5); MEAN CORPUSCULAR VOLUME 87.6 fl (80.0-96.0); MONO # 0.5 10^3/uL (0.0-0.8); MONO % 6.3 % (2.0-8.0); NEUTROPHILS # 4.6 10^3/uL (1.5-8.5); NEUTROPHILS % 58.3 % (36.0-66.0); PLATELET COUNT, AUTOMATED 236 10^3/uL (150-450); RED BLOOD COUNT 4.44 10^6/uL (4.00-5.40); WHITE BLOOD COUNT 7.8 10^3/uL (4.0-10.0)
[2023-08-06 21:15] VITALS: O2SAT 100
[2023-08-06 21:42] LABS: LIPASE 34 U/L (12-53)
[2023-08-06 21:44] LABS: ALBUMIN 3.9 G/DL (3.2-5.2); ALKALINE PHOSPHATASE 88 U/L (46-116); ALT/SGPT 29 U/L (7.0-40); AST/SGOT 16 U/L (<34); BILIRUBIN,DIRECT 0.1 MG/DL (<0.4); BILIRUBIN,TOTAL 0.4 MG/DL (0.3-1.2); TOTAL PROTEIN 7.8 G/DL (5.7-8.2)
[2023-08-06 22:59] LABS: BLOOD UREA NITROGEN 9 MG/DL (9-23); CARBON DIOXIDE LEVEL 28 MMOL/L (20-31); CHLORIDE LEVEL 104 MMOL/L (98-107); CREATININE FOR GFR 0.68 MG/DL (0.55-1.30); GLOMERULAR FILTRATION RATE > 60.0 (>60); GLUCOSE, FASTING 84 MG/DL (60-100); HCG, SERUM QUALITATIVE NEGATIVE (NEGATIVE); POTASSIUM SERUM 4.1 MMOL/L (3.5-5.1); SODIUM LEVEL 138 MMOL/L (136-145)
[2023-08-07] MEDS ORDERED: ONDANSETRON 4MG 2ML VIAL IV ONE
[2023-08-07] MEDS ORDERED: NS 1,000 ML IV ONE
[2023-08-07] MEDS ORDERED: KETOROLAC 30 MG/ML 1ML VIAL IV ONE
[2023-08-07] MEDS ORDERED: ISOVUE-370 76% 100ML VIAL As Ordered ONE (00:03)
[2023-08-07] MEDS ORDERED: ONDA4TAB6 PO (02:06)
[2023-08-07 02:28] VITALS: BP 106/59; TEMP 98.4
== END 2023-08-07 02:31 | disposition home or self-care (01) ==
LOC: M ED 17:11
DX: K52.9 Noninfective gastroenteritis and colitis, unspecified (principal)
CPT/HCPCS: 74177; 80048; 80076; 83690; 84703; 85025; 96374; 96375; 99284; J1885; J2405; Q9967

== ENCOUNTER → 2023-09-06 | Outpatient (CLI) | payer BC, OTHER ==
[~2023-09-06] MED LIST changes: +ONDA4TAB6 PO
== END ==
LOC: M SLEEP 20:00
PROVIDERS: ATTEND Nurse Practitioner Family
DX: G47.33 Obstructive sleep apnea (adult) (pediatric) (principal)

== ENCOUNTER → 2023-09-28 | Outpatient (REF) | payer BC, OTHER | LOC: M LAB REF 12:22 | PROVIDERS: ATTEND Nurse Practitioner Family | DX: E55.9 Vitamin D deficiency, unspecified (principal) ==

== ENCOUNTER → 2024-02-16 | Outpatient (REF) | payer BC | LOC: M LAB REF 12:07 | PROVIDERS: ATTEND Nurse Practitioner Family | DX: J01.90 Acute sinusitis, unspecified (principal) ==

== ENCOUNTER → 2024-03-17 | Outpatient (REF) | payer BC ==
[2024-03-17 17:50] LABS: CHOLESTEROL RISK RATIO 4.06 (<5); HDL CHOLESTEROL 41.1 MG/DL (>40); LDL CHOLESTEROL 87.3 MG/DL (<100); NON-HDL-C 125.9 MG/DL; THYROID STIMULATING HORMONE 2.157 uIU/ML (0.55-4.78)
== END ==
LOC: M LAB REF 16:37
PROVIDERS: ATTEND Nurse Practitioner Family
DX: E66.9 Obesity, unspecified (principal); Z68.34 Body mass index [BMI] 34.0-34.9, adult

== ENCOUNTER → 2024-09-06 | Outpatient (REF) | payer BC ==
[~2024-09-06] MED LIST changes: +ONDA-282 PO; -ONDA4TAB6 PO
[2024-09-06 17:38] LABS: MAGNESIUM LEVEL 1.9 MG/DL (1.8-2.4)
[2024-09-06 18:40] LABS: HEMOGLOBIN A1c 5.2 % (4.0-6.0)
== END ==
LOC: M LAB REF 16:29
PROVIDERS: ATTEND Nurse Practitioner Family
DX: E88.819 Insulin resistance, unspecified (principal); G43.909 Migraine, unspecified, not intractable, without status migrainosus

== ENCOUNTER → 2024-10-14 | Outpatient (CLI) | payer BC | LOC: M WUC 10:57 | PROVIDERS: ATTEND Physician Assistant | DX: M54.32 Sciatica, left side (principal) ==